=== PATIENT | female | born 1960 | race African-American/Black ===

== ENCOUNTER → 2016-12-06 | Outpatient (REF) | LOC: CLAB.BLUES 11:31 | PROVIDERS: ATTEND Family Medicine | DX: M06.9 Rheumatoid arthritis, unspecified (principal) | CPT/HCPCS: 84443; 85652; 86140 ==

== ENCOUNTER → 2016-12-08 | Outpatient (REF) | LOC: EDSTATUS 12-01 13:00 → RAD 13:00 | PROVIDERS: ATTEND Family Medicine | DX: Z12.31 Encounter for screening mammogram for malignant neoplasm of breast (principal) ==

== ENCOUNTER → 2017-02-02 | Outpatient (REF) ==
[2017-02-02 13:04] LABS: MEAN CORPUSCULAR HGB CONC 33.3 g/dL (31.0-37.0); MEAN PLATELET VOLUME 8.8 FL (6.0-9.5); PLATELET COUNT 275 10^3uL (150-450); WHITE BLOOD COUNT 6.06 10^3uL (4.0-11.0)
[2017-02-02 13:14] LABS: ALBUMIN 4.6 g/dL (3.4-5.0); ANION GAP 15.8 MEQ/L (3-15); CALCULATED IONIZED CALCIUM 3.5 mg/dL (3.8-4.6); TOTAL PROTEIN 7.8 g/dL (6.4-8.5)
[2017-02-02 13:29] LABS: MEAN CORPUSCULAR HEMOGLOBIN 35.8 PG (26.0-34.0); MEAN CORPUSCULAR VOLUME 108 FL (80-100)
[2017-02-02 13:30] LABS: BAND NEUTROPHILS % 1 % (0-6); EOSINOPHILS % 1 % (0-4); LYMPHOCYTES # 2.4 #; MONOCYTES # 0.4 #; MONOCYTES % 6 % (3-11); RBC MORPH NORMAL (NORMAL); SEGMENTED NEUTROPHILS % 52 % (51-67); TOTAL CELLS COUNTED 100
== END ==
LOC: CLAB.BLUES 12:30
PROVIDERS: ATTEND Family Medicine
DX: R53.83 Other fatigue (principal); M06.9 Rheumatoid arthritis, unspecified
CPT/HCPCS: 80053; 83036; 84443; 85007; 85027

== ENCOUNTER → 2017-03-06 | Outpatient (CLI) | payer OTHER ==
--- NOTE | 2017-03-06 15:33 | Diagnostic Imaging Report ---
Cervical Spine 3 views or less COMPARISON: MRI C-spine of 11/04/2014. INDICATION: Cervicalgia. TECHNIQUE: Three views of the cervical spine. FINDINGS: Cervical spine is normal in alignment. No fracture. Minimal disc space narrowing at C6-C7 and to a lesser degree C5-C6 is similar to prior MRI. Small anterior endplate spurring. No prevertebral soft tissue swelling. IMPRESSION: 1. Mild cervical spondylosis has not significantly changed since MRI of 11/04/2014. Dictated by: Dictated on workstation # [id number]
--- NOTE | 2017-03-06 15:37 | Diagnostic Imaging Report ---
INDICATION: Back pain. COMPARISON: Lumbar spine MRI from 11/12/2015. FINDINGS: Lumbar spine is normal in alignment. No compression fracture. Single-level disc space narrowing at L4-L5 has not significantly changed. Minimal endplate spurring along the anterior aspect of L3-L4, L4-L5 and L5-S1 is mildly progressed. Subchondral sclerosis of the left SI joint is likely degenerative in nature. Numerous surgical clips are present in the pelvis. IMPRESSION: 1. 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 Dictated by: Dictated on workstation # [id number]
--- NOTE | 2017-03-06 15:38 | Diagnostic Imaging Report ---
INDICATION: Right shoulder pain. TECHNIQUE: Internally rotated AP and transscapular Y views. COMPARISON: None available. FINDINGS: The glenohumeral alignment is normal. The acromioclavicular joint is also normal in alignment. The subacromial space is well-maintained. No acute fracture. No evidence of calcific tendinosis. IMPRESSION: No osseous abnormality of the right shoulder. Dictated by: Dictated on workstation # [id number]
== END ==
LOC: RAD 11:09
PROVIDERS: ATTEND Family Medicine
DX: M54.2 Cervicalgia (principal); M25.511 Pain in right shoulder; M54.89 Other dorsalgia; M47.897 Other spondylosis, lumbosacral region
CPT/HCPCS: 72040; 72100; 73030

== ENCOUNTER → 2017-03-28 | Outpatient (CLI) | payer OTHER ==
--- NOTE | 2017-03-28 13:17 | Diagnostic Imaging Report ---
INDICATION: Left shoulder injury. FINDINGS: Three views of the left shoulder show no fracture, dislocation, or other acute abnormalities. IMPRESSION: Negative left shoulder. Dictated by: Dictated on workstation # [id number]
--- NOTE | 2017-03-28 13:26 | Diagnostic Imaging Report ---
INDICATION: Left wrist injury. FINDINGS: Three views of the left wrist show no fracture, dislocation, or other acute abnormalities. IMPRESSION: Negative left wrist. Dictated by: Dictated on workstation # [id number]
== END ==
LOC: RAD 11:47
PROVIDERS: ATTEND Family Medicine
DX: M25.512 Pain in left shoulder (principal); S69.92XA Unspecified injury of left wrist, hand and finger(s), initial encounter; X58.XXXA Exposure to other specified factors, initial encounter
CPT/HCPCS: 73030; 73110

== ENCOUNTER → 2017-04-18 | Outpatient (CLI) | payer OTHER ==
--- NOTE | 2017-04-18 13:53 | Diagnostic Imaging Report ---
INDICATION: A 56-year-old postmenopausal female for screening osteoporosis. COMPARISON: None available. Baseline examination. TECHNIQUE: DEXA of the lumbar spine and bilateral hips was performed. FINDINGS: The L2-L4 vertebrae were used for assessment of the lumbar spine. The bone mineral density for the total lumbar spine is 1.154 g/cm2, and the T score is -0.4, and Z-score is -0.3. The left femoral neck has a bone density of 1.082 g/cm2, and the T score is 0.9, and Z-score is 1.1. The right femoral neck has a bone density of 1.017 g/cm2, and the T score is 0.3, and Z-score is 0.6. IMPRESSION: 1. Normal bone mineral density. Dictated by: Dictated on workstation # [id number]
== END ==
LOC: RAD 11:01
PROVIDERS: ATTEND Family Medicine
DX: Z00.00 Encounter for general adult medical examination without abnormal findings (principal); Z13.820 Encounter for screening for osteoporosis
CPT/HCPCS: 77080

== ENCOUNTER → 2017-04-18 | Outpatient (REF) ==
[2017-04-18 12:47] LABS: ALBUMIN 4.3 g/dL (3.4-5.0); ANION GAP 14.4 MEQ/L (3-15); TOTAL PROTEIN 7.2 g/dL (6.4-8.5)
[2017-04-18 13:06] LABS: MEAN CORPUSCULAR HGB CONC 34.4 g/dL (31.0-37.0); MEAN PLATELET VOLUME 9.8 FL (6.0-9.5); PLATELET COUNT 237 10^3uL (150-450); WHITE BLOOD COUNT 4.51 10^3uL (4.0-11.0)
[2017-04-18 13:23] LABS: MEAN CORPUSCULAR VOLUME 105 FL (80-100)
[2017-04-18 13:39] LABS: BAND NEUTROPHILS % 0 % (0-6); EOSINOPHILS % 0 % (0-4); LYMPHOCYTES # 1.7 #; MONOCYTES # 0.2 #; MONOCYTES % 5 % (3-11); RBC MORPH NORMAL (NORMAL)
[2017-04-19 17:46] LABS: SEGMENTED NEUTROPHILS % 57 % (51-67); TOTAL CELLS COUNTED 100
== END ==
LOC: CLAB.BLUES 12:29
PROVIDERS: ATTEND Family Medicine
DX: R73.03 Prediabetes (principal); M06.9 Rheumatoid arthritis, unspecified
CPT/HCPCS: 80053; 80061; 83036; 85007; 85027